=== PATIENT | female | born 1990 | race Two or more races ===

== ENCOUNTER → 2017-03-07 | Outpatient (REF) | payer BC ==
[~2017-03-07] MED LIST: /MOM400 PO; ACET50TA PO; DOCU10ELUD PO; IBUP80TA PO; PROG20CAP OR; prenatal vitamins OR
[2017-03-07 17:46] LABS: ALBUMIN 3.9 GM/DL (3.2-5.2); ALBUMIN/GLOBULIN RATIO 1.11 (1.00-1.93); ALKALINE PHOSPHATASE 106 U/L (45-117); ALT/SGPT 78 U/L (12-78); ANION GAP 8 MEQ/L (8-16); AST/SGOT 25 U/L (15-37); BILIRUBIN,TOTAL 0.4 MG/DL (0.2-1.0); BLOOD UREA NITROGEN 9 MG/DL (7-18); CALCIUM LEVEL 8.6 MG/DL (8.5-10.1); CARBON DIOXIDE LEVEL 28 MEQ/L (21-32); CHLORIDE LEVEL 104 MEQ/L (98-107); CHOLESTEROL LEVEL 142 MG/DL (<200); CREATININE FOR GFR 0.65 MG/DL (0.55-1.02); GLOMERULAR FILTRATION RATE > 60.0 (>60); GLUCOSE, FASTING 70 MG/DL (70-105); POTASSIUM SERUM 4.2 MEQ/L (3.5-5.1); SODIUM LEVEL 140 MEQ/L (136-145); TOTAL PROTEIN 7.4 GM/DL (6.4-8.2); TRIGLYCERIDES LEVEL 186 MG/DL (<150)
== END ==
LOC: M SFHCCLAY 13:37
PROVIDERS: ATTEND Family Medicine
DX: R10.9 Unspecified abdominal pain (principal); Z00.00 Encounter for general adult medical examination without abnormal findings; R19.7 Diarrhea, unspecified

== ENCOUNTER → 2017-05-13 | Outpatient (REF) | payer BC ==
[2017-05-19 10:10] LABS: CALPROTECTIN STOOL <16 ug/g (0-120); PANCREATIC ELASTASE STOOL >500 (>200)
== END ==
LOC: M LAB REF 09:46
PROVIDERS: ATTEND Nurse Practitioner Adult Health
DX: R19.7 Diarrhea, unspecified (principal); K59.1 Functional diarrhea; R10.30 Lower abdominal pain, unspecified

== ENCOUNTER → 2017-11-22 | Outpatient (CLI) | payer BC | LOC: M CLY 13:31 | DX: M54.5 Low back pain (principal) | CPT/HCPCS: 72110 ==